=== PATIENT | male | born 1960 | race Caucasian/White ===

== ENCOUNTER 2018-02-02 16:05 | Emergency (ER) | payer BC, SELFPAY ==
[2018-02-02 16:06] VITALS: BP 162/85; PULSE 58; RESP 16; TEMP 36.8; O2SAT 95; BMI 53.1
--- NOTE | 2018-02-02 16:35 | CT_ITS ---
STUDY: CT ABDOMEN AND PELVIS WITHOUT CONTRAST REASON FOR EXAM: Male, 57 years old. Right lower quadrant pain x2 hours. RADIATION DOSAGE (If Supplied By Facility): CTDIvol = ( 34.34 ) mGy, DLP = ( 1904.91 ) mGycm TECHNIQUE: Transaxial images were obtained from the dome of the diaphragm to the symphysis pubis without oral contrast, and without intravenous contrast. Sagittal and coronal images were reconstructed. Individualized dose optimization techniques were used for this CT. COMPARISON: None. FINDINGS: The visualized lung bases are unremarkable. The visualized portions of the heart are within normal limits. Normal liver. There are surgical clips in the gallbladder fossa consistent with a prior cholecystectomy. Normal spleen. Normal pancreas. Normal bilateral adrenal glands. Mild right hydronephrosis and right hydroureter with perinephric fat stranding or edema. There appears to be a stone at the right UPJ measuring 7.2 mm. Another nonobstructing right mid pole 3 mm nephroliths is noted. Normal left kidney. Normal visualized stomach. Normal small intestine. There are multiple colonic diverticula consistent with diverticulosis. The appendix is visualized and appears normal. Normal abdominal aorta. Normal inferior vena cava. Normal retroperitoneum. Normal urinary bladder. Normal visualized prostate gland. Normal abdominal wall. There are diffuse degenerative changes of the visualized lumbar spine. CT/Abdomen/Pelvis without Cont IMPRESSION: Mild right hydronephrosis and right hydroureter with a stone at the right UPJ as above. Another nonobstructing right-sided nephrolith is noted. Unremarkable appendix Electronically Signed: Hao Agrawal DO at 17:24 EDT Tel , Service support ,
[2018-02-02] MEDS: 0.9% Normal Saline 1,000 ML 1000 ML IV (16:48)
[2018-02-02] MEDS: Ketorolac 30 MG/ML Syringe IV (16:48)
[2018-02-02] MEDS: Ondansetron 4 MG/2 ML Vial IV (16:48)
[2018-02-02 17:12] LABS: Absolute Lymphocyte Count 1.69 X10^3/ul (0.83-4.51); Basophil# 0.01 X10^3/uL; Basophil% 0.2 % (0-1); Eosinophil# 0.12 X10^3/uL; Eosinophils% 2.3 % (0-5); Hematocrit 46.8 % (40-54); Hemoglobin 15.9 g/dl (13.0-16.5); Lymphocyte # 1.69 X10^3/ul (4.0); Lymphocyte % 32.3 % (19-41); Mean Corpuscular Hgb 31.4 pg (27.0-32.0); Mean Corpuscular Volume 92.5 fL (80-94); Mean Platelet Vol. 10.7 fl (6.2-12.0); Monocyte# 0.39 X10^3/uL; Monocyte% 7.4 % (0-10); Neutrophil # 3.03 X10^3/uL (2.7-7.7); Neutrophil % 57.8 % (47-70); Platelet Count 169 K/mm3 (150-450); RBC Distribution Width SD 43.3 fl (35.1-43.9); Red Blood Count 5.06 M/mm3 (4.6-6.2); White Blood Count 5.2 K/mm3 (4.4-11.0)
[2018-02-02 17:24] LABS: Anion Gap 8 (5-15); BUN 13 mg/dL (7-18); BUN/Creat Ratio 11.3 RATIO (10-20); Calcium,Total 9.1 mg/dL (8.5-10.1); Chloride 112 mmol/L (98-107); Creatinine, Serum 1.15 mg/dL (0.70-1.30); EST Glomerular Filtration Rate 69 mL/min (>60); Est Glom Filt Rate - Afr Amer 84 mL/min (>60); Estimated Creatinine Clearance 69.16 ml/min; Glucose 125 mg/dL (74-106); Potassium 3.7 mmol/L (3.5-5.1); Sodium Level 142 mmol/L (136-145)
[2018-02-02 18:00] LABS: POSITIVE COUNT NO; POSITIVE DIFFERENTIAL NO; POSITIVE MORPHOLOGY NO
[2018-02-02] MEDS: Morphine 4 MG/ML Syringe IV (18:07)
[2018-02-02] MEDS: proMETHazine 25 MG/ML Syringe 12.5 MG IV (18:07)
[2018-02-02 18:11] LABS: Color, Urine Yellow (Yellow); Glucose, Dipstick Normal (Normal); Ketone-Dipstick Negative (Negative); Leukocyte Esterase-Dipstick 25 /ul (Negative); Nitrite-Dipstick Negative (Negative); Occult Blood-Urine 250 /ul (Negative); Protein-Dipstick 30 mg/dl (Negative); Urine Bilirubin Dipstick Negative (Negative); Urine Clarity Sl. Cloudy (Clear); Urine Urobilinogen Normal (Normal)
[2018-02-02 18:14] VITALS: BP 160/82; PULSE 67; RESP 16; O2SAT 95
--- NOTE | 2018-02-02 18:14 | NURSING ---
CALLED LAB, URINE SENT AT 530. LAB STATES THEY ARE WORKING ON IT NOW.
[2018-02-02 18:33] LABS: White Blood Cells 0-5 SEEN /hpf (0-5)
[2018-02-02 18:34] LABS: Bacteria 2+ /hpf (None Seen); Mucous, Urine 1+ /hpf (<or=2+); Red Blood Cells-Urine 10-25 SEEN /hpf (0-5); Squamous Epithelial Cells - UA 0-5 SEEN /hpf (0-5)
--- NOTE | 2018-02-02 18:51 | ED.VISSUMM ---
- ER Visit Summary Date of Service: 02/02/18 Chief Complaint: Abdominal and flank pain History of Present Illness: The patient is a 57 M who presents with abdominal and flank pain. It began about 2-3 hours prior to presentation. It is sharp. It is located in the right flank and radiates down towards the right lower quadrant. It does radiate to the testicle. No back pain. He currently rates his pain as severe at 80 8 out of 10. He has had nausea and vomiting. He denies fevers chills diarrhea. He does have a history of prior kidney stones but states this feels different. Physical Examination: Afebrile vitals are unremarkable except hypertension with blood pressure 162/85 Patient appears uncomfortable Heart regular rate and rhythm Lungs clear Abdomen soft is some mild right lower quadrant and flank tenderness, no guarding no rebound Test Results: CBC BMP unremarkable. Urinalysis notable for blood. CT the flank shows mild hydronephrosis and a 7.2 mm UPJ calculus. Emergency Department Course and Treatment: Initially treated with Toradol and Zofran. He had transient improvement of symptoms. I was notified by the nurse that his pain was very being and he was beginning to have vomiting as well. He was then given morphine and Phenergan. On reevaluation he has had moderate improvement of the symptoms. He currently rates his pain at this 4 out of 10. He reports that this is a tolerable level for him. I spoke to urology on-call, Dr. Vega. Given that the patient's symptoms are currently controlled she was agreeable to having the patient follow-up as an outpatient. We will discharge the patient with Percocet and Flomax. He understands return for new or worsening symptoms. He was discharged home. Treatment Plan: [] Disposition: Discharge Impression: Ureterolithiasis This note was generated with [employer] dictation software. It may contain incorrect words, spelling, and punctuation that were not noted in review of the chart prior to signing ED Disposition - Plan for ED Patient: Chief Complaint: Abd Pain Referrals: Madhu Smith MD [Primary Care Provider] -
--- NOTE | 2018-02-02 18:54 | ED.DEP ---
ED Disposition - Plan for ED Patient: Chief Complaint: Abd Pain Instructions: ED Stone Renal W Colic Prescriptions: Oxycodone HCl/Acetaminophen [Percocet 5/325] 1 tab PO Q6H PRN PRN 5 Days #20 tab PRN Reason: Pain Tamsulosin HCl [Flomax] 0.4 mg PO DAILY #14 cap Referrals: Madhu Smith MD [Primary Care Provider] - Isaiah Cornelius MD [STAFF PHYSICIAN] -
[2018-02-02] MEDS: oxyCODONE 5 MG Tablet 10 MG PO (19:07)
[2018-02-02 19:16] VITALS: BP 167/94; PULSE 56; RESP 18; O2SAT 94
== END 2018-02-02 19:17 | disposition home or self-care (01) ==
PROVIDERS: Emergency Provider Emergency Medicine; Family Provider Family Medicine; PCP Family Medicine
DX: N13.2 Hydronephrosis with renal and ureteral calculous obstruction (principal); Z87.442 Personal history of urinary calculi; Z72.0 Tobacco use
CPT/HCPCS: 74176; 80048; 81001; 85025; 96361; 96374; 96375; 99284; J7030; A4216; J2405

== ENCOUNTER → 2018-02-03 14:21 | Outpatient (CLI) | payer BC, SELFPAY ==
--- NOTE | 2018-02-03 14:48 | EKG12_ITS ---
Test Reason : PREOP Blood Pressure : / mmHG Vent. Rate : 062 BPM Atrial Rate : 062 BPM P-R Int : 152 ms QRS Dur : 084 ms QT Int : 404 ms P-R-T Axes : 056 031 031 degrees QTc Int : 410 ms Normal sinus rhythm Normal ECG Confirmed by YOSEF MCFADDEN ([id number]), medical transcription editor GURU NARANJO ([id number]) on 02/05/2018 12:32:54 PM Referred By: Isaiah Cornelius Confirmed By:YOSEF MCFADDEN
[2018-02-03 16:35] LABS: Hematocrit 45.8 % (40-54); Hemoglobin 15.4 g/dl (13.0-16.5); Mean Corp Hgb Conc 33.6 g/gl (32-36); Mean Corpuscular Hgb 31.4 pg (27.0-32.0); Mean Corpuscular Volume 93.3 fL (80-94); Mean Platelet Vol. 11.1 fl (6.2-12.0); Platelet Count 146 K/mm3 (150-450); RBC Distribution Width CV 12.8 % (11.6-14.6); RBC Distribution Width SD 43.8 fl (35.1-43.9); Red Blood Count 4.91 M/mm3 (4.6-6.2)
[2018-02-03 16:48] LABS: Anion Gap 8 (5-15); BUN 15 mg/dL (7-18); BUN/Creat Ratio 10.3 RATIO (10-20); Calcium,Total 8.5 mg/dL (8.5-10.1); Chloride 110 mmol/L (98-107); Creatinine, Serum 1.45 mg/dL (0.70-1.30); EST Glomerular Filtration Rate 53 mL/min (>60); Est Glom Filt Rate - Afr Amer 64 mL/min (>60); Glucose 86 mg/dL (74-106); Potassium 3.7 mmol/L (3.5-5.1); Sodium Level 142 mmol/L (136-145)
[2018-02-03 16:51] LABS: Scan Indicated on CBC? Y/N NO
== END ==
PROVIDERS: Family Provider Family Medicine; PCP Family Medicine; Visit Provider Urology
DX: N20.0 Calculus of kidney (principal)
CPT/HCPCS: 36415; 80048; 85027; 93005

== ENCOUNTER → 2018-02-19 08:11 | Outpatient (CLI) | payer BC, SELFPAY ==
--- NOTE | 2018-02-19 08:22 | RAD_ITS ---
STUDY: X-RAY - ABDOMEN/PELVIS REASON FOR EXAM: Male, 57 years old. Right kidney stone and right ureteral stent. TECHNIQUE: 2 AP abdomen and pelvis KUB images obtained. COMPARISON: No prior abdominal radiographic imaging available. Correlation CT abdomen/pelvis 02/02/2018. FINDINGS: Diaphragm not visualized or lower lung bases. Cholecystectomy clips seen. Right ureter stent is noted, appears well positioned with the superior cope loop overlying the right renal shadow in the expected location of the renal pelvis. Right ureter stent shows adjacent slightly inferior lateral round smooth marginated homogeneous approximately 0.54 cm diameter density consistent with nephrolithiasis. There is a lot of fecal material overlying the colon especially the right colon without air-filled dilated small bowel loop or air-fluid level seen. Limitations of supine positioning and nonvisualization of the diaphragm limits sensitivity for free intraperitoneal air detection. Within pelvis, the urinary catheter overlies the bladder shadow in the midline. No acute osseous abnormality identified. Moderate degenerative lumbosacral spine. RAD/Abdomen Single View IMPRESSION: Right nephrolithiasis noted adjacent to the superior right ureter stent as described. Well positioned appearing right ureter stent. Cholecystectomy. Moderate degenerative lumbosacral spine. Limitations above. Electronically Signed: Isma Resendiz, at 9:32 EDT Tel , Service support ,
== END ==
LOC: RAD.FUTURE 08:12
PROVIDERS: Family Provider Family Medicine; PCP Family Medicine; Visit Provider Urology
DX: N20.0 Calculus of kidney (principal)
CPT/HCPCS: 74018

== ENCOUNTER 2020-04-14 01:24 | Emergency (ER) | payer OTHER, BC, SELFPAY ==
[2019-04-30 11:48] VITALS: BMI 53.1
[2020-04-14 01:26] VITALS: BP 137/125; PULSE 75; RESP 16; TEMP 35.8; O2SAT 97; BMI 44.4
--- NOTE | 2020-04-14 01:26 | ED.DCSUM_ITS ---
History of Present Illness Chief Complaint: Lower Extremity Injury Informant: Patient Onset: Today Context: Sudden Onset Timing: Continuous Current Severity: Moderate Maximum Severity: Severe Narrative: Patient is a 60-year-old male with history of depression presents to the emergency department with left leg injury. Patient was at work. He stepped on a dust dowell. His right leg went out in front of him and he did the splits. He did not strike his head. He denies loss of consciousness. He felt something pull in the back of his left thigh. Since then, he is a lot of pain moving the thigh. He denies other injury. He is otherwise been in his normal state of health. Prior similar symptoms: No Recent Illness/Hospitalization: No Past Medical History - Allergies and Home Meds Allergies/Adverse Reactions: Allergies No Known Allergies Allergy (Verified 04/19/16 08:56) Primary Care Physician: Agueda Heaton [GROUP OF PHYSICIANS] - As soon as possible Prior records reviewed: Yes Past Medical History: - - Depression Surgical History: noncontributory Smoking Status: Current every day smoker Review of Systems General: Denies: Chills, Fever, Sweats Eyes: Denies: Visual changes - bilaterally, Diplopia ENT: Denies: Rhinorrhea, Sore throat Cardiovascular: Denies: Chest pain, Palpitations Respiratory: Denies: Dyspnea, Cough, Dyspnea on exertion Gastrointestinal: Denies: Abdominal pain, Nausea, Vomiting, Diarrhea, Melena, Hematochezia Genitourinary: Denies: Dysuria, Hematuria, Frequency Musculoskeletal: Denies: Back pain, Extremity Pain Skin: Denies: Rash, Wounds Neurological: Denies: Headache, Weakness, Numbness Physical Exam Inital Vital Signs reviewed: Yes General: Well nourished, Well developed, No Acute Distress Head: Normocephalic, Atraumatic Eyes: Perrl, EOMI ENT: Moist mucous membranes, No rhinorrhea Neck: Supple, Nontender Cardiovascular: Regular rate, Regular rhythm, No murmurs Respiratory: No distress, CTA bilaterally, Chest nontender Abdomen: Soft, Nontender, Nondistended, Normal bowel sounds Back: Nontender, Normal Inspection Extremities: No edema, Tenderness - Patient is tender in the area of the hamstring. He is able to extend the leg. His pulses are normal. The skin is intact. Skin: Normal color, No rash Neurological: Alert, Oriented x3, Cranial nerves II-XII grossly intact, Normal Strength, Normal Sensation Psychological: Normal affect, Normal Mood Diagnostic/Tx/Re-eval Clinical Impression(s) from Imaging Studies Femur X-Ray 04/14/20 01:45 IMPRESSION: Normal x-ray examination of the femur. Electronically Signed: Hao Agrawal DO at 2:13 EDT Tel , Service support , - Medical Decision Making The patient symptoms do seem most consistent with a hamstring tear. All of the pain is in the posterior thigh. His pulses are normal. He is neurovascular intact distally. Given the mechanism, I did obtain some plain films. There is no evidence of fracture dislocation. I am going to treat the patient with a short course of analgesics, an Jean wrap, crutches. He will be placed on work restrictions. He will follow-up with [facility] care for reevaluation. Impression 1. Left hamstring tear ED Disposition - Plan for ED Patient: Instructions: ED Strain Muscle Ext Prescriptions: cycloBENZAPRine HCl [Flexeril] 10 mg PO TID PRN #20 tab PRN Reason: Muscle Spasm Prescription Printed Hydrocodone Bitart/Apap 5-325 [[place] 5MG-325MG] 1 tab PO Q6H PRN PRN 3 Days #10 tab PRN Reason: Pain Prescription Printed Referrals: [facility] [GROUP OF PHYSICIANS] - As soon as possible
--- NOTE | 2020-04-14 01:28 | ED.RN ---
CALLED TANISHA WITH [facility] FOR DRUG TESTING, NO ANSWER, LEFT MESSAGE
[2020-04-14] MEDS: HYDROcodone Bitartrate/Apap 5/325 Tablet PO (01:30)
--- NOTE | 2020-04-14 01:45 | RAD_ITS ---
STUDY: X-RAY - LEFT FEMUR REASON FOR STUDY: Male, 60 years old. SLIPPED ON DUST MATOS AT WORK AND HAS PAIN IN LEFT FEMUR/ HIP. TECHNIQUE: 4 view(s) of the femur. COMPARISON: None. FINDINGS: Normal visualized femur. Normal visualized soft tissue structure. RAD/Femur Min 2 Views IMPRESSION: Normal x-ray examination of the femur. Electronically Signed: Hao Agrawal DO at 2:13 EDT Tel , Service support ,
[2020-04-14 02:47] VITALS: BP 133/87; PULSE 87; RESP 16; O2SAT 98
== END 2020-04-14 02:51 | disposition home or self-care (01) ==
PROVIDERS: Emergency Provider Emergency Medicine; PCP Family Medicine
DX: S76.312A Strain of muscle, fascia and tendon of the posterior muscle group at thigh level, left thigh, initial encounter (principal); F32.9 Major depressive disorder, single episode, unspecified; F17.200 Nicotine dependence, unspecified, uncomplicated; Z79.899 Other long term (current) drug therapy; X50.1XXA Overexertion from prolonged static or awkward postures, initial encounter; Y93.89 Activity, other specified; Y92.009 Unspecified place in unspecified non-institutional (private) residence as the place of occurrence of the external cause; Y99.8 Other external cause status
CPT/HCPCS: 73552; 99283

== ENCOUNTER → 2020-04-25 | Outpatient (CLI) | payer OTHER, SELFPAY ==
[2020-04-19 15:12] VITALS: BMI 44.4
--- NOTE | 2020-04-25 07:24 | MRI_ITS ---
MRI of the left thigh without contrast INDICATION: Leg injury, leg pain. COMPARISON: X-ray 04/14/2020 TECHNIQUE: Multiplanar spin-echo minute resonance images of the left thigh were obtained without the ministration of intravenous gadolinium. FINDINGS: Edema of the subcutaneous kidneys fat posteriorly consistent with dependent edema. There are multiple areas of T1 hyperintense and T2 hyperintense fluid within the hamstring musculature consistent with hematomas most notably between the biceps femoris and the semitendinosus which measures 2.0 x 3.5 x 16 cm consistent with an NFL grade 3 muscles tear. No acute fracture or dislocation. No marrow replacing lesions. IMPRESSION: NFL grade 3 of the tear of the hamstring musculature. Electronically Signed: David Spence MD at 13:38 EDT Tel , Service support , MRI/Lower Ext/No Jt/w/o
== END | disposition home or self-care (01) ==
PROVIDERS: PCP Family Medicine; Referring Provider Physician Assistant Surgical; Visit Provider Physician Assistant Surgical
DX: S76.812A Strain of other specified muscles, fascia and tendons at thigh level, left thigh, initial encounter (principal)
CPT/HCPCS: 73718

== ENCOUNTER 2021-03-20 14:26 | Emergency (ER) | payer OTHER, SELFPAY ==
[2021-03-20 14:27] VITALS: BP 166/103; PULSE 87; RESP 18; TEMP 36; O2SAT 95; BMI 39.5
--- NOTE | 2021-03-20 16:26 | EX.ED.DYSGE1 ---
HPI History of Present Illness Chief Complaint: Lower Extremity Injury Informant: patient Onset/Context/Timing Onset: Weeks Context: Gradual Onset Timing: Waxes and wanes Current Severity: Moderate Maximum Severity: Severe Narrative Narrative: Patient presents with a 10-day history of left hip pain. Patient states pain started last Friday and he was seen at [facility] on . X-rays were obtained and unremarkable. He was treated with a course of prednisone and took ibuprofen with it. Patient states he took his last dose of prednisone this morning. He has had no improvement in his pain. In fact she states his leg has been giving out on him intermittently and he had 3 falls over the weekend. He denies any new injury from the falls. He called the orthopedic doctor he was referred to but cannot be seen until May. [facility] Medical History (Updated 03/20/21 @ 16:[address] Cammie Resendiz MD) DDD (degenerative disc disease), lumbar TOM on CPAP Sleep apnea Home Medications NK 03/20/21 [History Last Taken Unknown] cyclobenzaprine 10 mg PO BID PRN #10 tab 03/20/21 [Rx Last Taken Unknown] hydrocodone-acetaminophen 1 tab PO Q6H PRN 3 Days #10 tab 03/20/21 [Rx Last Taken Unknown] naproxen [Naprosyn] 500 mg PO BID PRN #20 tab 03/20/21 [Rx Last Taken Unknown] omeprazole magnesium [Prilosec OTC] 20 mg PO DAILY #30 tab 03/20/21 [Rx Last Taken Unknown] prednisone See Taper PO DAILY #63 tab 03/20/21 [Rx Last Taken Unknown] Allergy/AdvReac Type Severity Reaction Status Date / Time No Known Allergies Allergy Verified 03/20/21 14:30 Family History Father Colon cancer Mother Hypertension Brother Diabetes Brother Prostate cancer Other Cancer Surgical History History of cholecystectomy History of knee replacement Hx of foot surgery Social History household members: spouse housing: house Smoking Status: Current every day smoker tobacco type: cigarettes alcohol intake: current alcohol intake frequency: holidays/special occasions only what type of physical activity do you participate in: other details: bowling do you feel safe at home: Yes ROS ROS ED Constitutional Constitutional ED: Denies chills or fever(s) Eyes Eyes: Denies change in vision ENT ENT ED: Denies sore throat Cardiovascular Cardiovascular: Denies chest pain Respiratory/Chest Respiratory/Chest: Denies cough or dyspnea Gastrointestinal Gastrointestinal: Denies abdominal pain, diarrhea, nausea or vomiting Genitourinary Genitourinary ED: Denies dysuria Musculoskeletal Musculoskeletal: Reports arthralgias; Denies back pain Integumentary Denies rash Neurologic Neurologic: Reports paresthesias; Denies headache(s) or weakness Allergic/Immunologic Allergic/Immunologic ED: Denies urticaria EXAM Physical Exam Const Vital Signs: 03/20/21 14:27 Temperature 96.8 F L Temperature Source Temporal Pulse Rate 87 Respiratory Rate 18 Blood Pressure 166/103 H Blood Pressure Mean 124 Pulse Ox 95 Oxygen Delivery Method Room Air Positive well nourished and well developed General Appearance ED: well developed HEENT Reports normocephalic and head/scalp atraumatic Eyes PERRL and EOMs intact bilaterally Neck supple Chest Wall inspection of chest normal and palpation of chest normal Resp normal respiratory effort and clear to auscultation bilaterally Cardio regular rate and regular rhythm GI normal to inspection, nondistended, normoactive bowel sounds and non-tender Palpation: soft Back/Spine no CVA tenderness Back/Spine Narrative: No tenderness over the thoracic or lumbar spine. Reproducible tenderness over the left sciatic notch. Extremity normal to inspection Extremity Narrative: Tenderness over the greater trochanter of the left hip. Strong distal pulses. Full range of motion without difficulty. Normal sensation on testing. Neuro oriented x3 and no sensory deficits noted Sensorium / Orientation: alert Motor Exam: strength 5/5 throughout Psych mental status grossly normal Skin no rashes or lesions noted MDM MDM MDM Narrative Medical decision making narrative: Patient already had hip x-rays done that were unremarkable. He describes pain starting at the lateral left hip and shooting down his leg consistent with sciatica pattern. Patient be treated with [place], Flexeril, Naprosyn, prednisone taper. He will be written for Prilosec to help with stomach ulcer/irritation. He will be referred to local orthopedics to see if he can be seen sooner than May. Discharge Plan Triage Chief Complaint: Lower Extremity Injury ED Provider: Cammie Resendiz Dx/Rx/DC Orders Clinical Impression: Sciatica Instructions: ED Sciatica Prescriptions: New hydrocodone-acetaminophen 5-325 mg tablet 1 tab PO Q6H PRN (Reason: pain) 3 Days Qty: 10 RF: 0 cyclobenzaprine 10 mg tablet 10 mg PO BID PRN (Reason: muscle spasm) Qty: 10 RF: 0 naproxen [Naprosyn] 500 mg tablet 500 mg PO BID PRN (Reason: pain) Qty: 20 RF: 0 prednisone 10 mg tablet See Taper mg PO DAILY Qty: 63 RF: 0 omeprazole magnesium [Prilosec OTC] 20 mg tablet,delayed release (DR/EC) 20 mg PO DAILY Qty: 30 RF: 0 No Action NK RF: 0 Primary Care Provider: Madhu Smith Referrals: Madhu Smith MD [Primary Care Provider] - Chilo Cantrell DO [STAFF PHYSICIAN] - As soon as possible Disposition Disposition: Home, Self Care
[2021-03-20] MEDS: cycloBENZAPRine HCl 10 MG Tablet PO (16:30)
[2021-03-20] MEDS: HYDROcodone Bitartrate/Apap 5/325 Tablet PO (16:30)
== END 2021-03-20 16:51 | disposition home or self-care (01) ==
PROVIDERS: Emergency Provider Emergency Medicine; PCP Family Medicine
DX: M54.32 Sciatica, left side (principal); F17.210 Nicotine dependence, cigarettes, uncomplicated
CPT/HCPCS: 99284